=== PATIENT | female | born 1975 | race Caucasian/White ===

== ENCOUNTER 2022-01-29 08:17 | Outpatient (CLI) | payer BC | END 2022-01-29 08:18 | disposition home or self-care (01) | LOC: CSHMAMMO 08:17 | PROVIDERS: ATTEND Obstetrics & Gynecology | DX: Z12.31 Encounter for screening mammogram for malignant neoplasm of breast (principal); Z80.3 Family history of malignant neoplasm of breast | CPT/HCPCS: 77063; 77067 ==

== ENCOUNTER 2023-03-01 04:30 | Observation (INO) | payer BC ==
[2023-03-01 05:46] VITALS: BMI 29.2
[2023-03-01] MEDS: Sodium Chloride 0.9% 1,000 ML IV SCH ×2 (06:12→12:01)
[2023-03-01] MEDS ORDERED: Ondansetron PF 4 MG/2 ML Vial IVP PRN (07:48)
[2023-03-01] MEDS ORDERED: Acetaminophen 325 MG TAB PO PRN (07:48)
[2023-03-01 08:33] LABS: #Eosinphils 0.1 10x3/uL (0.0-0.5); #Monocytes 0.5 10x3/uL (0.0-1.1); #Neutrophils 4.1 10x3/uL (1.5-8.4); %Basophils 0.6 % (0.0-2.0); %Eosinophils 1.1 % (0.0-6.0); %Lymphocytes 27.5 % (18.0-47.0); %Monocytes 8.2 % (0.0-10.0); %Neutrophils 62.3 % (40.0-75.0); Hematocrit 35.4 % (34.9-44.5); Mean Corpuscular HGB CONC 33.9 g/dL (32.0-36.0); Mean Corpuscular Hemoglobin 30.5 pg (27.0-33.0); Mean Corpuscular Volume 89.8 fl (81.6-98.3); Mean Platelet Volume 11.1 fl (7.4-10.4); Platelet Count 200 10x3/uL (150-450); RBC Distribution Width 11.9 % (11.5-14.5); Red Blood Cell (RBC) Count 3.94 10x6/uL (3.90-5.03); White Blood Cell (WBC) Count 6.6 10x3/uL (3.5-10.5)
[2023-03-01 08:58] LABS: ALT (SGPT) 12 U/L (8-55); AST (SGOT) 16 U/L (5-34); Albumin 3.6 g/dL (3.5-5.0); Alkaline Phosphatase 54 U/L (40-110); Anion Gap 12 mmol/L (10-20); BUN (Urea Nitrogen) 9 mg/dL (7.0-18.7); Bilirubin, Total 0.2 mg/dL (0.2-1.2); Calc. Creatinine Clearance 113 mL/min (70-130); Carbon Dioxide 24 mmol/L (22-29); Chloride 109 mmol/L (98-107); Estimated GFR 100; Globulin 2.4 g/dL (2.4-3.5); Glucose 88 mg/dL (70-105); Potassium 4.3 mmol/L (3.5-5.1); Sodium 141 mmol/L (136-145)
[2023-03-01] MEDS ORDERED: Amlodipine 10 MG TAB PO SCH (12:00)
[2023-03-01] MEDS ORDERED: Levothyroxine Sodium 75 MCG TAB PO SCH (12:00)
[2023-03-01 12:04] LABS: SARS-CoV-2 NAA Rapid Test Not Detected (NotDetected)
[2023-03-01 12:37] VITALS: BP 133/73; TEMP 98.3
[2023-03-02] MEDS ORDERED: Levothyroxine Sodium 75 MCG TAB PO SCH (06:00)
[2023-03-02] MEDS ORDERED: Amlodipine 10 MG TAB PO SCH (09:00)
== END 2023-03-01 16:42 | disposition home or self-care (01) ==
LOC: CSHTELE 05:35
PROVIDERS: ADMIT Family Medicine; ATTEND Family Medicine
DX: K80.70 Calculus of gallbladder and bile duct without cholecystitis without obstruction (principal); Z79.890 Hormone replacement therapy; Z79.899 Other long term (current) drug therapy
CPT/HCPCS: 36415; 76705; 80053; 83690; 85025; 93005; 93010; G0378; J7050; U0002